=== PATIENT | female | born 1985 | race Caucasian/White ===

== ENCOUNTER 2016-11-03 15:23 | Outpatient (CLI) | payer OTHER ==
[~2016-11-03] VITALS: Ht 165.1 cm; Wt 65.0 kg
[~2016-11-03 15:23] MED LIST: ALBU18HF INHALATION; CALC667C PO; FERR240T9 PO; FOLI0.8C PO; IBUP-1542 PO; PREN1TAB79 PO; TYL500 PO
[2016-11-03 16:25] VITALS: Ht 165.1 cm; Wt 65.0 kg
[2016-11-03 16:26] VITALS: BP 101/52; RESP 20
--- NOTE | 2016-11-03 16:55 | PN ---
Triage Information Date/Time Reason for visit: lower abdominal pain and L breast pain x2d Weeks of Gestation 28+3 /Para 3/1 Diabetes: none Hypertention: none Objective Vital Signs Date Time Temp Pulse Resp B/P Pulse Ox O2 Delivery O2 Flow Rate FiO2 11/03/16 16:26 98.0 20 101/52 Room Air Heart Rate: 140's Contractions: >10 Minutes Apart (2 UCs in 40 min) Exam Breast: symmetric, L breast w/o lesions, erythema or skin changes, no palpable masses or lymph nodes Abd: soft, gravid, NT Disposition: Discharge Assessment/Plan LAP -No e/o PTL given infrequent UCs and TVCL >3cm. FFN not indicated thus test cancelled given results of TVCL -U/A neg for infection L breast pain -Unclear etiology -Exam wnl -Possibly hormonal origin to pain -Recommended pt keep pain diary to better identify triggers, onset and duration of pain to discuss with primary OB at next visit -Return precautions reviewed FWB -Reassuring w/reactive NST Pt appropriate for d/c home with f/up as scheduled with Dr. Sullivan on 11/12 PTL, PPROM, [facility] precautions reviewed DAVID ABDI MD Nov 03, 2016 16:55
--- NOTE | 2016-11-03 17:04 | RADRPT ---
PROCEDURE: Limited obstetric ultrasound CLINICAL INDICATION: cramping TECHNIQUE: Multiple transverse and longitudinal grayscale images of the pelvis were obtained malone sabdominally and endovaginally.. COMPARISON: same day FINDINGS: There is a single live intrauterine gestation in a vertex position with a heart rate of 146 bp m. The cervix is closed and measures 4.4 cm in length. RPTAT: AA IMPRESSION: The cervix is closed and measures 4.4 cm in length. Saeed Ling Physician Date Time Electronically viewed and signed by Saeed Ling Physician on 11/03/2016 17:04 /
[2016-11-03 17:17] LABS: ADD UMIC NO; UR ASCORBIC ACID NEGATIVE (NEGATIVE); UR BILIRUBIN (Dip) NEGATIVE (NEGATIVE); UR BLOOD (Dip) NEGATIVE (NEGATIVE); UR CLARITY CLEAR (CLEAR); UR COLOR YELLOW (YELLOW); UR GLUCOSE (Dip) NEGATIVE (NEGATIVE); UR KETONES (Dip) NEGATIVE (NEGATIVE); UR LEUKOCYTE ESTERASE (Dip) NEGATIVE Leu/ul (NEGATIVE); UR NITRITE (Dip) NEGATIVE (NEGATIVE); UR SPECIFIC GRAVITY (Dip) 1.021 (1.003-1.030); UR TOTAL PROTEIN (Dip) NEGATIVE (NEGATIVE); UR UROBILINOGEN (Dip) NEGATIVE (NEGATIVE)
--- NOTE | 2016-11-03 17:44 | TRIAGE ---
OB Triage Datetime Report Generated by CPN: 11/03/2016 17:44 Datetime: 11/03/2016 15:48 Assessment Type: Triage Maternal Assessment Level of Consciousness: Fully Conscious DTR's/Clonus: DTRs 2+; No Clonus Headache: Denies Blurred Vision: No Respiratory Effort: Unlabored; Regular Rhythm; Equal Expansion Breath Sounds, Left: Clear and Equal Breath Sounds, Right: Clear and Equal Nausea/Vomiting: Denies RUQ Epigastric Pain: Denies Facial Edema: None Fall Risk Assessment History of Falling: (0) No Secondary Diagnosis: (0) No Ambulatory Aid: (0) Bedrest/Nurse Assist IV Therapy: (0) No Gait: (0) Normal/Bedrest/Immobile Mental Status: (0) Oriented to Own Ability Fall Score: 0 Fall Risk Score Definition: No Risk: No action required Datetime: 11/03/2016 15:46 Labor Evaluation Frequency: irritability Monitor Mode: External Quality: Mild Resting Tone [place]: Relaxed Heart Rate FHR Baseline Rate: 120 Monitor Mode: External US FHR Baseline Changes: No Baseline Change Variability: Moderate 6-25 bpm Accelerations: 15X15 Decelerations: None Category: Category I Datetime: 11/03/2016 15:45 Time of Arrival: 11/03/2016 15:46 EGA: 28.3 Arrived By: Wheelchair Arrived From: Emergency Dept Chief Complaint: feels cramping for a few days, pressurea, left breast pain. Movement: Present Contractions: Denies/Absent Rupture of Membranes: Denies Vaginal Bleeding: None Vaginal Discharge: Present Recent Sexual Intercouse: Denies Abdominal Trauma: Not Applicable Patient Complaints: Cramping; Other Provider Notified: efrain rapp
== END 2016-11-03 17:45 | disposition home or self-care (01) ==
LOC: L-D 15:23 → OBT 15:23 → L-D 15:24 → OBT 17:45
PROVIDERS: ATTEND Obstetrics & Gynecology
DX: O26.892 Other specified pregnancy related conditions, second trimester (principal); Z3A.28 28 weeks gestation of pregnancy; R10.30 Lower abdominal pain, unspecified; N64.4 Mastodynia
CPT/HCPCS: 76817; 81003; Z7500; G0463